=== PATIENT | male | born 1960 | race Two or more races ===

== ENCOUNTER 2022-04-08 19:34 | Emergency (ER) | payer MEDICAID, OTHER ==
[~2022-04-08] VITALS: Ht 193 cm; Wt 72.6 kg
--- NOTE | 2022-04-08 20:10 | NUR ---
BIBS c/o fever, cp, and frequent urination since . AMBULATORY, PLACED IN BED, AAOX4, BREATHING UNLABORED SATURATING AT 96%RA.
--- NOTE | 2022-04-08 20:58 | NUR ---
SWAB FOR COVID19 AND RAPID INFLUENZA SENT TO LAB
--- NOTE | 2022-04-08 21:48 | NUR ---
XRAY DONE AT BEDSIDE
[2022-04-08] MEDS ORDERED: GUAI-671 PO (22:06)
[2022-04-08] MEDS ORDERED: LEVO500T90 PO (22:06)
--- NOTE | 2022-04-08 22:15 | NUR ---
Patient discharged to home in stable condition. Written and verbal after care instructions given. Patient verbalizes understanding of instruction.
[2022-04-08 22:16] VITALS: BP 115/75
== END 2022-04-08 22:15 | disposition home or self-care (01) ==
LOC: ER 19:45
DX: J18.9 Pneumonia, unspecified organism (principal); Z20.822 Contact with and (suspected) exposure to COVID-19
CPT/HCPCS: 99284; 71045; 87426; 87804 ×2; C9803